=== PATIENT | female | born 1970 | race Caucasian/White ===

== ENCOUNTER 2021-05-14 06:40 | Observation (INO) ==
[2021-05-14] MEDS ORDERED: dexAMETHasone 4 MG TABLET PO STA (07:06)
[2021-05-14] MEDS ORDERED: EPINEPHrine 1 MG/ML VIAL IM ONE (08:20)
[2021-05-14 08:51] LABS: Basophils % 0.1 %; Eosinophils # 0.1 K/mcL (0.0-0.6); Hematocrit 43.9 % (35.3-44.9); Hemoglobin 14.6 g/dL (11.5-15.4); Immature Granulocytes % 0.3 % (0-4); Lymphocytes # 1.2 K/mcL (0.6-4.6); Lymphocytes % 11.6 %; Mean Corpuscular HGB Conc 33.3 g/dL (31.6-35.5); Mean Corpuscular Hemoglobin 30.7 pg (28.0-33.3); Mean Corpuscular Volume 92.4 fL (83.0-100.0); Mean Platelet Volume 9.5 fL (9.4-12.4); Monocytes # 0.5 K/mcL (0.0-1.3); Monocytes % 5.1 %; Neutrophils # 8.8 K/mcL (1.6-8.9); Platelet Count 296 K/mcL (140-400); Red Blood Count 4.75 M/mcL (3.82-4.97); Red Cell Distribution Width 13.2 % (11.5-14.5); Segmented Neutrophils % 81.9 %; White Blood Count 10.7 K/mcL (4.3-11.1)
[2021-05-14 09:13] LABS: BUN/Creatinine Ratio 8 (6-26); Blood Urea Nitrogen 7 mg/dL (6-20); Calcium 8.8 mg/dL (8.6-10.3); Carbon Dioxide 28 mEq/L (23-29); Chloride 104 mEq/L (98-107); Glucose 111 mg/dL (70-105); Osmolality,Calculated 287 (280-300); Potassium 3.6 mEq/L (3.5-5.1); Sodium 139 mEq/L (136-145); eGFR For African Americans > 60 (> 60); eGFR For Non-African Americans > 60 (> 60)
[2021-05-14] MEDS ORDERED: Naloxone 0.4 MG/ML INJ IVP PRN (10:17)
[2021-05-14] MEDS: MethylPREDNISolone 40 MG/ML VIAL IVP SCH (17:05)
[2021-05-15] MEDS: MethylPREDNISolone 40 MG/ML VIAL IVP SCH (05:14)
[2021-05-15] MEDS ORDERED: Cyanocobalamin (B-12) 1,000 MCG TABLET PO SCH (09:00)
[2021-05-15 10:13] VITALS: BP 122/70
== END 2021-05-15 11:14 | disposition home or self-care (01) ==
LOC: EMEROOARM 06:40 → 2NENU 06:40 → SUATTDRO 10:08 → 2NENU 10:39
PROVIDERS: ADMIT Internal Medicine; ATTEND Internal Medicine